=== PATIENT | male | born 1970 | race Caucasian/White ===

== ENCOUNTER 2018-02-02 22:23 | Inpatient (IN) | payer OTHER ==
[~2018-02-02] VITALS: Ht 175.3 cm; Wt 77.3 kg
[2018-02-02 23:15] LABS: BASOPHIL % 0.1 % (0-2); PLATELET COUNT 299 x10^3mcL (130-400); RED CELL DISTRIBUTION WIDTH 13.8 % (11.5-14.5)
[2018-02-02 23:49] LABS: CHLORIDE SERUM 88 mmol/L (98-107); SODIUM SERUM 128 mmol/L (136-145)
[2018-02-02 23:50] LABS: CARBON DIOXIDE 12 mmol/L (21-32)
[2018-02-02 23:51] LABS: ALBUMIN 4.3 g/dL (3.4-5.0); ALKALINE PHOSPHATASE 140 U/L (46-116); ALT/SGPT 27 U/L (16-63); AST/SGOT 14 U/L (15-37); BILIRUBIN TOTAL 0.7 mg/dL (0.20-1.00); CALCIUM 11.2 mg/dL (8.5-10.1); TOTAL PROTEIN, SERUM 9.3 g/dL (6.4-8.2)
[2018-02-02 23:53] LABS: GLUCOSE SERUM 584 mg/dL (74-106)
[2018-02-03] MEDS ORDERED: HUMALOG100 UNIT/1 SQ (01:52)
[2018-02-03 02:06] LABS: FREE T4 1.07 ng/dL (0.76-1.46)
[2018-02-03 02:07] LABS: FREE THYROXINE INDEX 2.1 ug/dL (1.4-4.5); T4(THYROXINE) 5.6 ug/dL (4.7-13.3)
[2018-02-03 02:31] VITALS: BP 111/85
[2018-02-03 04:09] LABS: microscopic required? YES; urine erythrocyte TRACE (NEGATIVE)
[2018-02-03 04:41] LABS: AMPHETAMINE QUAL UR POSITIVE (NEG <=1000)
[2018-02-03] MEDS ORDERED: METFORMIN HCL1000 MG PO (04:43)
[2018-02-03] MEDS ORDERED: HUMI INJ (04:44)
[2018-02-03] MEDS ORDERED: LANTUS SOLOS100 U/M1 SC (04:44)
[2018-02-03] MEDS ORDERED: ZESTRIL20 MG PO (04:45)
[2018-02-03] MEDS ORDERED: PROPYLTHIOURACI50 MG PO (04:45)
[2018-02-03 05:06] LABS: BASOPHIL % 0.1 % (0-2); PLATELET COUNT 274 x10^3mcL (130-400); RED CELL DISTRIBUTION WIDTH 13.9 % (11.5-14.5)
[2018-02-03 05:11] LABS: T3 TOTAL 0.51 ng/mL
[2018-02-03 05:13] LABS: PHOSPHOROUS 7.9 mg/dL (2.5-4.9)
[2018-02-03 05:14] LABS: CHOLESTEROL/HDL RATIO 3.8
[2018-02-03 05:38] LABS: MAGNESIUM 2.3 mg/dL (1.8-2.4)
[2018-02-03 06:33] LABS: CARBON DIOXIDE 20.5 mmol/L (21-32); CHLORIDE SERUM 100 mmol/L (98-107); GLUCOSE SERUM 250 mg/dL (74-106); SODIUM SERUM 130 mmol/L (136-145)
[2018-02-03 06:34] LABS: CALCIUM 9.8 mg/dL (8.5-10.1); CREATININE SERUM 1.2 mg/dL (0.7-1.3); GFR1 > 60 mL/min; MAGNESIUM 1.5 mg/dL (1.8-2.4); PHOSPHOROUS 3.5 mg/dL (2.5-4.9)
[2018-02-03 08:00] VITALS: BP 132/72
[2018-02-03 08:28] LABS: CHLORIDE SERUM 103 mmol/L (98-107); POTASSIUM SERUM 3.1 mmol/L (3.5-5.1); SODIUM SERUM 131 mmol/L (136-145)
[2018-02-03 08:29] LABS: CALCIUM 9.3 mg/dL (8.5-10.1); CARBON DIOXIDE 21.6 mmol/L (21-32); GFR1 > 60 mL/min; GLUCOSE SERUM 124 mg/dL (74-106); MAGNESIUM 1.5 mg/dL (1.8-2.4); PHOSPHOROUS 2.9 mg/dL (2.5-4.9)
[2018-02-03 11:49] VITALS: BP 98/72
[2018-02-03 17:00] VITALS: BP 90/57
[2018-02-03 21:14] VITALS: BP 100/63
[2018-02-04 06:19] VITALS: BP 99/60
[2018-02-04 06:34] LABS: BASOPHIL % 0.4 % (0-2); PLATELET COUNT 227 x10^3mcL (130-400); RED CELL DISTRIBUTION WIDTH 14.2 % (11.5-14.5)
[2018-02-04 06:54] LABS: CALCIUM 8.8 mg/dL (8.5-10.1); CARBON DIOXIDE 22.5 mmol/L (21-32); CHLORIDE SERUM 100 mmol/L (98-107); CREATININE SERUM 0.5 mg/dL (0.7-1.3); GFR1 > 60 mL/min; GLUCOSE SERUM 175 mg/dL (74-106); MAGNESIUM 1.7 mg/dL (1.8-2.4); POTASSIUM SERUM 3.3 mmol/L (3.5-5.1); SODIUM SERUM 133 mmol/L (136-145)
[2018-02-04 07:19] LABS: PHOSPHOROUS 2.8 mg/dL (2.5-4.9)
[2018-02-04 09:34] VITALS: BP 128/90
[2018-02-04] MEDS ORDERED: LIPI10 PO (11:25)
[2018-02-04] MEDS ORDERED: ASPIR 8181 MG PO (11:26)
[2018-02-04 13:15] VITALS: BP 120/80
[2018-02-04 13:23] VITALS: BP 120/80
== END 2018-02-04 14:38 | disposition home or self-care (01) | DRG 420 ==
LOC: ED 22:23 → IC 02-03 00:28 → DU 02-03 11:26
PROVIDERS: Emergency Medicine; Family Medicine
PROC: 02HV33Z Insertion of Infusion Device into Superior Vena Cava, Percutaneous Approach (ICD-10-PCS; principal; 2018-02-03)
DX: E11.10 Type 2 diabetes mellitus with ketoacidosis without coma (principal); N17.0 Acute kidney failure with tubular necrosis; G92 Toxic encephalopathy; E87.8 Other disorders of electrolyte and fluid balance, not elsewhere classified; K86.1 Other chronic pancreatitis; I10 Essential (primary) hypertension; F17.210 Nicotine dependence, cigarettes, uncomplicated; E21.3 Hyperparathyroidism, unspecified; E87.1 Hypo-osmolality and hyponatremia; Z53.29 Procedure and treatment not carried out because of patient's decision for other reasons; D72.829 Elevated white blood cell count, unspecified; E87.6 Hypokalemia; Z79.4 Long term (current) use of insulin; Z79.899 Other long term (current) drug therapy; Z56.0 Unemployment, unspecified
CPT/HCPCS: 36556; 36600; 82962; 83880; 84439; 85378; J0696; J1642; J1815; J1885; J2270; J2405; J3475; J3480; J3490; J7030; Q0092